=== PATIENT | female | born 1965 | race Caucasian/White ===

== ENCOUNTER 2017-06-12 11:20 | Emergency (ER) | payer MEDICAID ==
[~2017-06-12] VITALS: Ht 172.7 cm; Wt 105.0 kg
[~2017-06-12 11:20] MED LIST: ESTR1TAB PO; IBUP800T23 PO; METHO500 PO; OMEP20TA PO; SPIRCAP INH; SYMB80AE INH
[2017-06-12 11:26] VITALS: BP 163/93; PULSE 102; RESP 16; TEMP 98.2; O2SAT 97
[2017-06-12] MEDS ORDERED: ZANTTAB11 PO (11:47)
[2017-06-12] MEDS ORDERED: ADDE20 PO (11:47)
--- NOTE | 2017-06-12 11:54 | PD ---
HPI Chief Complaint: Hypertension Time Seen by Provider: 11:53 Travel History International Travel<30 days: No Contact w/Intl Traveler<30days: No Traveled to known affect area: No History of Present Illness HPI 52-year-old female came to the emergency room with history of fluctuating blood pressure that she has started to measure for past 1 week and has noticed that it fluctuates between 180-120. Patient is mostly asymptomatic during these times. She does not have a primary care and hence came here to be seen. Her blood pressure in triage was in 170 systolic but by the time I went to see her it was 125/80. Patient says that she was on Adderall for almost 2 years and stopped taking it one week ago. No history of chest pain or blurred vision. She is a smoker. [facility] Past Medical History Narrative Medical List of her past medical, surgical, social and family history is reviewed from the nursing note. Hx Anticoagulant Therapy: No ADD: Yes Diabetes: No GERD: Yes Ulcer: Yes Tetanus Vaccination: Unknown Influenza Vaccination: No ?: Not Menopausal: Yes Tubal Ligation: Yes Past Surgical History Appendectomy: Yes Hysterectomy: Yes Oral Surgery: Yes (throat for removal of polyps) Social History Alcohol Use: No Tobacco Use: Yes (1 ppd cigs) Substance Use: No Allergies-Medications (Allergen,Severity, Reaction): Coded Allergies: No Known Allergies (Unverified Adverse Reaction, Unknown, 06/12/17) Comments no known drug allergies. Reported Meds & Prescriptions Reported Meds & Active Scripts Active Reported Adderall (Amphetamine-Dextroamphetamine) 20 Mg Tab 20 Mg PO BID Avoid late evening doses. Space doses at least 4 to 6 hours if more than once/day dosing. Zantac 75 (Ranitidine HCl) 75 Mg Tablet 1 Tab PO DAILY Narrative Medication List of her home medications reviewed from the nursing note. Review of Systems Except as stated in HPI: all other systems reviewed are Neg Physical Exam Narrative GENERAL: Awake, alert, no obvious distress SKIN: Focused skin assessment warm/dry. HEAD: Atraumatic. Normocephalic. EYES: Pupils equal and round. No scleral icterus. No injection or drainage. ENT: No nasal bleeding or discharge. Mucous membranes pink and moist. NECK: Trachea midline. No JVD. CARDIOVASCULAR: Regular rate and rhythm. No murmur appreciated. RESPIRATORY: No accessory muscle use. Clear to auscultation. Breath sounds equal bilaterally. GASTROINTESTINAL: Abdomen soft, non-tender, nondistended. Hepatic and splenic margins not palpable. MUSCULOSKELETAL: No obvious deformities. No clubbing. No cyanosis. No edema. NEUROLOGICAL: Awake and alert. No obvious cranial nerve deficits. Motor grossly within normal limits. Normal speech. PSYCHIATRIC: Appropriate mood and affect; insight and judgment normal. Data Data Last Documented VS Orders Orders Ed Discharge Order (06/12/17 12:13) MDM Medical Decision Making Medical Screen Exam Complete: Yes Emergency Medical Condition: Yes Medical Record Reviewed: Yes Differential Diagnosis Essential hypertension, smoking cessation Narrative Course 12:17 PM I discussed with the patient at length about the physiologic variations of blood pressure on a day-to-day basis. Also she needs to do a lot of lifestyle change before she is just put on blood pressure medication since the blood pressure did come down to 125 systolic just in the emergency room itself. Patient understands. I'll discharge her. Procedures EKG Prior to Arrival: No Diagnosis Primary Impression: Normal physical examination Additional Impression: Needs smoking cessation education Referrals: [facility] Primary Care Physician Additional Instructions: Please try to find a primary care physician for yourselves. There is the name and address of the physical your clinic included in this discharge instruction. You can walk in there for follow-ups as well. Keep a diary log of your blood pressure measuring twice a day. At any time if more than 200 both eyes having symptoms like chest pain, shortness of breath then you need to come back to the emergency room. You need to quit smoking in order to live healthy. Exercise and weight loss would help control the blood pressure better as well. Disposition: 01 DISCHARGE HOME Condition: Stable Luis Sanches MD Jun 12, 2017 11:54
[2017-06-12 12:01] VITALS: BP 126/85; PULSE 94; RESP 16; O2SAT 96
== END 2017-06-12 12:22 | disposition home or self-care (01) ==
LOC: PHEFT 11:20
DX: R03.0 Elevated blood-pressure reading, without diagnosis of hypertension (principal); F98.8 Other specified behavioral and emotional disorders with onset usually occurring in childhood and adolescence; K21.9 Gastro-esophageal reflux disease without esophagitis; F17.210 Nicotine dependence, cigarettes, uncomplicated; Z79.899 Other long term (current) drug therapy
CPT/HCPCS: 99281